=== PATIENT | female | born 1950 | race Two or more races ===

== ENCOUNTER → 2020-12-23 | Day surgery (SDC) | payer MEDICARE ==
[~2020-12-23] MED LIST: IV RINGERS,LACTATED 1000ML 1,000 ML IV ONE; LIDOCAINE 2% PF 5 ML VIAL. ONE; LISI1TAB37 PO; METO25TA2 PO; PROPOFOL 10 MG/ML (20ML) VIAL. IV ONE
[2020-12-23 10:53] VITALS: BP 140/74
== END | disposition home or self-care (01) ==
LOC: ENDOS 08:25
PROVIDERS: ATTEND Internal Medicine Gastroenterology
DX: R13.10 Dysphagia, unspecified (principal); R10.11 Right upper quadrant pain; K74.60 Unspecified cirrhosis of liver; I85.10 Secondary esophageal varices without bleeding; K31.89 Other diseases of stomach and duodenum; K29.50 Unspecified chronic gastritis without bleeding; K44.9 Diaphragmatic hernia without obstruction or gangrene; I10 Essential (primary) hypertension; Z90.49 Acquired absence of other specified parts of digestive tract; Z98.890 Other specified postprocedural states; Z79.899 Other long term (current) drug therapy; Z88.2 Allergy status to sulfonamides; Z20.822 Contact with and (suspected) exposure to COVID-19
CPT/HCPCS: 43239; 43244; 43450; 87426; J2704; 88305; 88342

== ENCOUNTER 2021-02-24 08:05 | Day surgery (SDC) | payer MEDICARE ==
[~2021-02-24] VITALS: Ht 147.3 cm; Wt 129.0 kg
[~2021-02-24 08:05] MED LIST changes: -IV RINGERS,LACTATED 1000ML 1,000 ML IV ONE; +IV RINGERS,LACTATED 1000ML 1,000 ML IV SCH; -LIDOCAINE 2% PF 5 ML VIAL. ONE; -PROPOFOL 10 MG/ML (20ML) VIAL. IV ONE
[2021-02-24 08:26] VITALS: BP 116/67
[2021-02-24] MEDS ORDERED: PROPOFOL 10 MG/ML (20ML) VIAL. IV ONE ×2 (08:33→13:40)
[2021-02-24] MEDS ORDERED: LIDOCAINE 2% PF 5 ML VIAL. ONE (08:33)
[2021-02-24] MEDS ORDERED: SUCCINYLCHOLINE 200 MG/10 ML VIAL. ONE ×2 (10:00→10:21)
[2021-02-24] MEDS ORDERED: MIDAZOLAM HCL/PF 5 MG/5 ML VIAL. ONE (10:15)
[2021-02-24] MEDS ORDERED: fentaNYL PF VIAL 100 MCG/2 ML VIAL ONE (13:37)
[2021-02-24] MEDS: fentaNYL PF VIAL 100 MCG/2 ML VIAL IVP PRN ×2 (13:40→14:42)
[2021-02-24] MEDS ORDERED: ONDANSETRON PF 4 MG/2 ML VIAL. IVP PRN (14:15)
[2021-02-24] MEDS ORDERED: fentaNYL PF VIAL 100 MCG/2 ML VIAL IVP PRN (14:15)
[2021-02-24 14:28] VITALS: BP 132/55
--- NOTE | 2021-02-28 19:18 | PATHOLOGY ---
[facility] Accession Number: [id number] . 01 Material submitted: . PART A: small bowel - SMALL BOWEL BIOPSY PART B: stomach - ANTRUM AND BODY BIOPSY. Modifiers: ANTRUM, body . 01 Clinical history: . 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 02 Diagnosis: A. Small bowel biopsies: - Focal mild nonspecific duodenitis. . B. Gastric biopsies, gastric antrum and body: - Chronic gastritis, mild. (JPM:shanda; 02/28/2021) [facility] 02/28/2021 0959 [facility] . 02 Comment: Sections of the small bowel biopsy reveal segments of duodenal mucosa showing a focal increase of chronic inflammatory cells with a few admixed neutrophils within the lamina propria. Where best oriented, the mucosal villi show no sprue-like changes. . Sections of the gastric biopsy reveal segments of gastric body and gastric antral/body transition mucosa showing congestion and mild chronic inflammation. A properly controlled immunoperoxidase stain for Helicobacter is negative for Helicobacter organisms. (JPM:shanda; 02/28/2021) . Special stain performed: Immunoparoxidase stain for Helicobacter on . Electronically signed: . David Reilly MD, Pathologist NPI- [id number] . 01 Gross description: . A. Received in formalin labeled "Ana Campoverde, small bowel biopsy" are multiple cross-brown soft tissue fragments measuring in aggregate 1.6 x 0.6 x 0.3 cm. The specimen is submitted entirely in A1. . B. Received in formalin labeled "Ana Campoverde, antrum and body biopsy" are multiple cross-brown soft tissue fragments measuring in aggregate 1.4 x 0.5 x 0.3 cm. The specimen is submitted entirely in B1. ([facility]; 02/25/2021) GZA/GZA 02/28/2021 0953 Local . 02 Pathologist provided ICD-10: K29.80, K29.50 . 02 CPT . 002775, 322644, [id number] Specimen Comment: A courtesy copy of this report has been sent to [phone], [phone] Specimen Comment: [id number] Specimen Comment: Report sent to / DR TATE Specimen Comment: A duplicate report has been generated due to demographic updates. Performed at: 01 [facility] [address], [place] [id number] MD Gumaro Crawford MD Phone: [phone] Performed at: 02 [facility] [address] [place], [place] [id number] MD David Reilly MD Phone: [phone]
--- NOTE | 2021-03-08 16:44 | PREOP HP ---
DATE OF SERVICE: 02/24/2021 REQUESTING PHYSICIAN: Ana Leblanc MD PRIMARY CARE PHYSICIAN: Ana Leblanc MD REASON FOR PROCEDURE: Esophageal varices. HISTORY OF PRESENT ILLNESS: This is a 70-year-old female who presents with cirrhosis. She is to undergo upper endoscopy to evaluate for esophageal varices in the setting of cirrhosis. Her last upper endoscopy was 12/23/2020 and she had one band placed at that time. 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 MEDICATIONS: MAR reviewed. FAMILY MEDICAL HISTORY: Her father and mother both had chronic liver disease. REVIEW OF SYSTEMS: A 13-point review of systems was done and positives per HPI, otherwise negative. PHYSICAL EXAMINATION: VITAL SIGNS: She is afebrile and her vital signs are stable. GENERAL: She is a thin female in no apparent distress. HEENT: Oropharynx is clear. CARDIAC: S1, S2. LUNGS: Clear. ABDOMEN: Active bowel sounds, soft, nontender, nondistended. EXTREMITIES: No edema. NEUROLOGIC: Awake, alert and oriented x3. ASSESSMENT AND PLAN: Cirrhosis: Plan for upper endoscopy for surveillance for esophageal varices. The risks and benefits of the procedure including bleeding, perforation nondiagnosis and sedation were explained and she has agreed to proceed. RAUDEL LONDON: Nilda TID: [id number]
== END 2021-02-24 14:34 | disposition short-term general hospital (02) ==
LOC: ENDOS 08:05
PROVIDERS: ATTEND Internal Medicine Gastroenterology
DX: I85.00 Esophageal varices without bleeding (principal); K29.50 Unspecified chronic gastritis without bleeding; K31.89 Other diseases of stomach and duodenum; I10 Essential (primary) hypertension; F32.9 Major depressive disorder, single episode, unspecified; F41.9 Anxiety disorder, unspecified; Z79.899 Other long term (current) drug therapy; Z88.2 Allergy status to sulfonamides; Z98.890 Other specified postprocedural states
CPT/HCPCS: 43239; 43244; 43450; 88305; 88342; C1726; J0330; J2250; J2405; J2704; J3010; 43233